=== PATIENT | female | born 1980 | race Two or more races ===

== ENCOUNTER 2023-03-24 12:33 | Emergency (ER) | payer MEDICAID ==
[~2023-03-24] VITALS: Ht 152.4 cm; Wt 69.7 kg
[2023-03-24 14:29] VITALS: BP 138/74; PULSE 71; RESP 16; TEMP 97.8; O2SAT 98
[2023-03-24] MEDS ORDERED: IBUP-1454 PO (15:00)
== END 2023-03-24 15:06 | disposition home or self-care (01) ==
LOC: ER 12:33
DX: M77.8 Other enthesopathies, not elsewhere classified (principal)
CPT/HCPCS: 73030

== ENCOUNTER 2024-04-05 17:30 | Emergency (ER) | payer MEDICAID ==
[~2024-04-05] VITALS: Ht 154.9 cm; Wt 79.0 kg
[~2024-04-05 17:30] MED LIST: IBUP-1454 PO
[2024-04-05 18:49] LABS: Urine Bacteria None Seen /hpf (None Seen)
[2024-04-05 18:55] LABS: Basophils # (auto) 0.1 10 ^3/uL (0-0.2); Basophils % (auto) 0.8 % (0.0-2.0); Eosinophils # (auto) 0.1 10 ^3/uL (0-0.8); Eosinophils % (auto) 1.3 % (0.0-7.0); Hematocrit 37.4 % (36.0-46.0); Hemoglobin 12.6 g/dL (12.2-16.2); Lymphocytes # (auto) 1.8 10 ^3/uL (0.4-5.4); Mean Corpuscular Hemoglobin 28.7 pg (28.0-32.0); Mean Corpuscular Hgb Conc. 33.6 g/dL (32.0-36.0); Mean Corpuscular Volume 85.4 fL (80.0-100.0); Monocytes # (auto) 0.6 10 ^3/uL (0-1.3); Monocytes % (auto) 9.5 % (0.0-12.0); Neutrophils # (auto) 4.2 10 ^3/uL (1.6-8.6); Neutrophils % (auto) 61.4 % (37.0-80.0); Platelet Count (auto) 307 10^3/uL (140-450); Red Blood Cells 4.38 10^6/uL (4.0-5.20); Red Cell Distribution Width 14.3 % (11.8-14.3); White Blood Cell 6.8 10^3/uL (4.4-10.8)
[2024-04-05 18:59] LABS: Urine Blood 3+ /uL (Negative); Urine Clarity Turbid (Clear); Urine Color Yellow (Yellow); Urine Mucus FEW (None Seen); Urine Protein, UAD 1+ (Negative); Urine Specific Gravity 1.031 (1.001-1.035); Urine Squamous Epithelial Cell MOD /hpf (<5); Urine Urobilinogen Normal (Negative); Urine WBC 3 /hpf (0 - 5); Urine pH 7.5 (5.0-9.0)
[2024-04-05 19:04] LABS: Chloride 106 mmol/L (98-107); Sodium 140 mmol/L (136-145)
[2024-04-05 19:05] LABS: Anion Gap 6 (5-15); Calcium 9.3 mg/dL (8.7-10.4); Carbon Dioxide 28 mmol/L (20-31)
[2024-04-05 19:10] LABS: BUN/Creatinine Ratio 19.6 (10.0-20.0); Blood Urea Nitrogen 11 mg/dL (9-23); Glucose 94 mg/dL (74-106)
--- NOTE | 2024-04-05 20:27 | ED.PDOC ---
VISUAL EDUCATOR HPI Comments This patient is a pleasant 43-year-old Italian-speaking only female who arrives the ED today for evaluation of excessive menses. Patient states she has had a heavy menses for the past 10 days. Patient has had heavy menses concerns for several months now. Patient has been seen by melt superintendant and has been placed on oral contraceptives medication to aid in this process. Patient's history is significant for uterine fibroids. Vital signs were stable on arrival. Chief Complaint: Vaginal Bleed Time Seen by MD: 17:46 Reviewed Notes: Nurses Notes Allergies: Coded Allergies: NO KNOWN ALLERGIES (Unverified , 03/24/23) Home Meds Active Scripts Ibuprofen (Ibuprofen) 600 Mg Tab, 1 TAB PO TID, #30 TAB Prov:MAUREEN GARCÍA 03/24/23 Information Source: Patient Mode of Arrival: Ambulatory Timing: Days Prehospital treatment: None Severity: Moderate Bleeding Quality: Bright Red Onset Of Mass/Bleeding: Menstrual Past Medical History PAST MEDICAL HISTORY: Denies Past Medical History (Other): Recent menses concerns Surgical History: Denies all surgeries SAP BW BI DEVELOPER History: No Pertinent SAP BW BI DEVELOPER History Family History Family History: Reviewed,noncontributory to illness Social History Smoker: Non-Smoker Alcohol: Denies ETOH Use Drugs: Denies Drug Use Lives In: Home Constitutional: denies: chills, diaphoresis, fatigue, fever, malaise, sweats, weakness, others EENTM: denies: blurred vision, double vision, ear bleeding, ear discharge, ear drainage, ear pain, ear ringing, eye pain, eye redness, hearing loss, mouth pain, mouth swelling, nasal discharge, nose bleeding, nose congestion, nose pain, photophobia, tearing, throat pain, throat swelling, voice changes, others Respiratory: denies: cough, hemoptysis, orthopnea, SOB at rest, shortness of breath, SOB with excertion, stridor, wheezing, others Cardiovascular: denies: chest pain, dizzy spells, diaphoresis, Dyspnea on exertion, edema, irregular heart beat, left arm pain, lightheadedness, palpitations, PND, syncope, others Gastrointestinal: denies: abdomen distended, abdominal pain, blood streaked bowels, constipated, diarrhea, dysphagia, difficulty swallowing, hematemesis, melena, nausea, poor appetite, poor fluid intake, rectal bleeding, rectal pain, vomiting, others Genitourinary: reports: abnormal vagina bleeding; denies: burning, dyspareunia, dysuria, flank pain, frequency, hematuria, incontinence, pain, , vagina discharge, urgency, others Neurological: denies: dizziness, fainting, headache, left sided numbness, left sided weakness, numbness, paresthesia, pre-existing deficit, right sided numbness, right sided weakness, seizure, speech problems, tingling, tremors, weakness, others Musculoskeletal: denies: back pain, gout, joint pain, joint swelling, muscle pain, muscle stiffness, neck pain, others Integumetry: denies: bruises, change in color, change in hair/nails, dryness, laceration, lesions, lumps, rash, wounds, others Allergic/Immunocompromised: denies: Difficulty Healing, Frequent Infections, Hives, Itching, others Hematologic/Lymphatic: denies: anemia, blood clots, easy bleeding, easy bruising, swollen glands, others Endocrine: denies: excessive hunger, excessive sweating, excessive thirst, excessive urination, flushing, intolerance to cold, intolerance to heat, unexplained weight gain, unexplained weight loss, others Psychiatric: denies: anxiety, bipolar disorder, depression, hopeless, panic disorder, schizophrenia, sleepless, suicidal, others Physical Exam General Appearance: Mild Distress (Moderate distress due to anxiety more than pain concerns.), Normal HEENT: Normal ENT Inspection, Pharynx Normal, TMs Normal Neck: Full Range of Motion, Non-Tender, Normal, Normal Inspection Respiratory: Chest Non-Tender, Lungs Clear, No Accessory Muscle Use, No Respiratory Distress, Normal Breath Sounds Cardiovascular: No Edema, No JVD, No Murmur, No Gallop, Normal Peripheral Pulses, Regular Rate/Rhythm Breast Exam: Deferred Gastrointestinal: No Organomegaly, Non Tender, No Pulsatile Mass, Normal Bowel Sounds, Soft Genitalia: Deferred Pelvic: Deferred Rectal: Deferred Extremities: No calf tenderness, Normal capillary refill, Normal inspection, Normal range of motion, Non-tender, No pedal edema Neurologic: Alert, gluer and slicer hand II-XII nml as Tested, No Motor Deficits, Normal Affect, Normal Mood, No Sensory Deficits Cerebellar Function: Normal Reflexes: Normal Skin: Dry, Normal Color, Warm Lymphatic: No Adenopathy Was a procedure done? Was a procedure done?: No Differential Diagnosis (SAP BW BI DEVELOPER) Vaginal Bleeding: Other (Anemia, dysfunctional uterine bleed, UTI) X-Ray, Labs, Meds, VS Vital Signs Date Time Temp Pulse Resp B/P (MAP) Pulse Ox O2 Delivery O2 Flow Rate FiO2 04/05/24 18:26 97.8 89 18 140/92 (108) 98 Lab Test 04/05/24 18:30 04/05/24 00:00 Range/Units White Blood Count 6.8 4.4-10.8 10^3/uL Red Blood Count 4.38 4.0-5.20 10^6/uL Hemoglobin 12.6 12.2-16.2 g/dL Hematocrit 37.4 36.0-46.0 % Mean Corpuscular Volume 85.4 80.0-100.0 fL Mean Corpuscular Hemoglobin 28.7 28.0-32.0 pg Mean Corpuscular Hemoglobin Concent 33.6 32.0-36.0 g/dL Red Cell Distribution Width 14.3 11.8-14.3 % Platelet Count 307 140-450 10^3/uL Mean Platelet Volume 8.2 6.9-10.8 fL Neutrophils (%) (Auto) 61.4 37.0-80.0 % Lymphocytes (%) (Auto) 27.0 10.0-50.0 % Monocytes (%) (Auto) 9.5 0.0-12.0 % Eosinophils (%) (Auto) 1.3 0.0-7.0 % Basophils (%) (Auto) 0.8 0.0-2.0 % Neutrophils # (Auto) 4.2 1.6-8.6 10 ^3/uL Lymphocytes # (Auto) 1.8 0.4-5.4 10 ^3/uL Monocytes # (Auto) 0.6 0-1.3 10 ^3/uL Eosinophils # (Auto) 0.1 0-0.8 10 ^3/uL Basophils # (Auto) 0.1 0-0.2 10 ^3/uL Nucleated Red Blood Cells 0.0 % Sodium Level 140 136-145 mmol/L Potassium Level 4.0 3.5-5.1 mmol/L Chloride Level 106 98-107 mmol/L Carbon Dioxide Level 28 20-31 mmol/L Anion Gap 6 5-15 Blood Urea Nitrogen 11 9-23 mg/dL Creatinine 0.56 0.550-1.02 mg/dL Glomerular Filtration Rate Calc 118 >90 mL/min BUN/Creatinine Ratio 19.6 10.0-20.0 Serum Glucose 94 74-106 mg/dL Calcium Level 9.3 8.7-10.4 mg/dL Urine Color Yellow Yellow Urine Clarity Turbid H Clear Urine pH 7.5 5.0-9.0 Urine Specific Holcomb 1.031 1.001-1.035 Urine Protein 1+ H Negative Urine Ketones Negative Negative Urine Blood 3+ H Negative /uL Urine Nitrite Negative Negative Urine Bilirubin Negative Negative Urine Urobilinogen Normal Negative mg/dL Urine Leukocyte Esterase 1+ Negative /uL Urine RBC 1 0 - 4 /hpf Urine WBC 3 0 - 5 /hpf Urine Squamous Epithelial Cells Mod <5 /hpf Urine Bacteria None seen None Seen /hpf Urine Mucus Few None Seen Urine Glucose 1+ H Normal mg/dL X-Ray, Labs, Meds, VS Comment All studies performed the ED were evaluated by me personally. Laboratories were unremarkable for any systemic process as it was urine. Advised patient that she needs to continue follow up with her melt superintendant for management of her heavy menses concerns. Time of 1ST Reevaluation: 20:25 Reevaluation 1ST: Unchanged Consultation: PCP, airplane gas tank liner assembler Patient Education/Counseling: Diagnosis, Treatment Family Education/Counseling: Diagnosis, Treatment Departure 1 Departure Time of Disposition: 20:26 Impression: Primary Impression: Heavy menses Disposition: 01 HOME / SELF CARE / HOMELESS Condition: Stable Additional Instructions: Follow up with melt superintendant for continued evaluation and management of her heavy menses concerns. Discharged With: Self, Friend Critical Care Note Critical Care Time?: No Stability Stability form required: No Heart Score Heart Score: Heart Score Response (Comments) Value History N/A 0 EKG N/A 0 Age N/A 0 Risk Factors N/A 0 Troponin N/A 0 Total 0 KEMI WOOD PAC Apr 05, 2024 20:26
[2024-04-05 20:39] VITALS: BP 124/86; PULSE 69; RESP 16; TEMP 97.8; O2SAT 98
== END 2024-04-05 20:55 | disposition home or self-care (01) ==
LOC: ER 17:30
DX: N92.0 Excessive and frequent menstruation with regular cycle (principal); Z79.1 Long term (current) use of non-steroidal anti-inflammatories (NSAID); Z86.018 Personal history of other benign neoplasm
CPT/HCPCS: 36415; 80048; 81001; 85025

== ENCOUNTER 2024-04-12 20:29 | Emergency (ER) | payer MEDICAID ==
[~2024-04-12] VITALS: Ht 154.9 cm; Wt 74.2 kg
[2024-04-12 20:56] VITALS: BP 127/79; PULSE 95; RESP 16; O2SAT 100
--- NOTE | 2024-04-12 21:23 | ED.PDOC ---
NURSING PROGRAM DIRECTOR HPI Comments 43-year-old female who came to ER for vaginal bleeding. Patient is a , LMP of Mar 15 which lasted a few days. Last Mar 27, she started having vaginal bleeding again, which progressively worsened the past few days, consuming 7 pads/ day. Currently complaining of weakness and bilateral leg cramps. She denies being . Patient has yet to see a Twisthand regarding this issue. Chief Complaint: Vaginal bleeding Time Seen by MD: 21:22 Reviewed Notes: Nurses Notes Allergies: Coded Allergies: NO KNOWN ALLERGIES (Unverified , 03/24/23) Home Meds Active Scripts Ibuprofen (Ibuprofen) 600 Mg Tab, 1 TAB PO TID, #30 TAB Prov:MAUREEN GARCÍA 03/24/23 Information Source: Patient Mode of Arrival: Ambulatory Timing: Days Severity: Moderate Bleeding Quality: Bright Red, Dark Onset Of Mass/Bleeding: Spontaneous Associated Signs and Symptoms: Vaginal Bleeding, Abdominal Pain Review of Systems REVIEW OF SYSTEMS: No fever, no chills, or fatigue HEENT: No sore throat, no earache, no congestion, no neck pain. Cardiac: No chest pain. No palpitations. Lungs: No shortness of breath, no cough. GI: No nausea, no vomiting, no diarrhea, no constipation, positive pelvic pain : No dysuria, frequency, or urgency. No hematuria. (+) vaginal bleeding Musculoskeletal: No joint pain , no joint swelling, no extremity edema. Skin: No rash, no itching. Neuro: No headache, no dizziness, (+)weakness Vital Signs Vital Signs Date Time Temp Pulse Resp B/P (MAP) Pulse Ox O2 Delivery O2 Flow Rate FiO2 04/12/24 20:56 98.7 95 16 127/79 (95) 100 Physical Exam General: Awake, alert and oriented. No acute distress. Skin: Skin in warm, dry and intact without rashes or lesions. HEENT: The head is normocephalic and atraumatic. Conjunctivae are clear without exudates or hemorrhage. Sclera is non-icteric. Neck: Normal range of motion. No JVD. Cardiac: Regular rate Respiratory: No signs of respiratory distress. No Stridor. Extremities: Upper and lower extremities are atraumatic in appearance without tenderness or deformity. Neurological: The patient is awake, alert and oriented to person, place, and time with normal speech. Speech is clear. There is no facial asymmetry. Psychiatric: Appropriate mood and affect. Good judgement and insight. No visual or auditory hallucinations. No suicidal or homicidal ideation. Past Medical History PAST MEDICAL HISTORY: Denies Surgical History: Denies all surgeries RAILROAD SWITCHMAN History: No Pertinent RAILROAD SWITCHMAN History 2 Para 2 LMP Mar 15, 2024 Family History Family History: Reviewed,noncontributory to illness Social History Smoker: Non-Smoker Alcohol: Denies ETOH Use Drugs: Denies Drug Use Lives In: Home Was a procedure done? Was a procedure done?: No Differential Diagnosis (RAILROAD SWITCHMAN) Vaginal Bleeding: Blood Loss Anemia, Menorrhagia, Menometrorrhagia, Menstrual Bleeding, UTI X-Ray, Labs, Meds, VS Vital Signs Date Time Temp Pulse Resp B/P (MAP) Pulse Ox O2 Delivery O2 Flow Rate FiO2 04/12/24 20:56 98.7 95 16 127/79 (95) 100 Lab Test 04/12/24 21:36 04/12/24 21:27 Range/Units White Blood Count 8.5 4.4-10.8 10^3/uL Red Blood Count 3.70 L 4.0-5.20 10^6/uL Hemoglobin 10.6 L 12.2-16.2 g/dL Hematocrit 31.7 L 36.0-46.0 % Mean Corpuscular Volume 85.8 80.0-100.0 fL Mean Corpuscular Hemoglobin 28.6 28.0-32.0 pg Mean Corpuscular Hemoglobin Concent 33.3 32.0-36.0 g/dL Red Cell Distribution Width 13.8 11.8-14.3 % Platelet Count 278 140-450 10^3/uL Mean Platelet Volume 8.9 6.9-10.8 fL Neutrophils (%) (Auto) 68.8 37.0-80.0 % Lymphocytes (%) (Auto) 22.8 10.0-50.0 % Monocytes (%) (Auto) 6.8 0.0-12.0 % Eosinophils (%) (Auto) 1.2 0.0-7.0 % Basophils (%) (Auto) 0.4 0.0-2.0 % Neutrophils # (Auto) 5.8 1.6-8.6 10 ^3/uL Lymphocytes # (Auto) 1.9 0.4-5.4 10 ^3/uL Monocytes # (Auto) 0.6 0-1.3 10 ^3/uL Eosinophils # (Auto) 0.1 0-0.8 10 ^3/uL Basophils # (Auto) 0 0-0.2 10 ^3/uL Nucleated Red Blood Cells 0.0 % Sodium Level 143 136-145 mmol/L Potassium Level 3.2 L 3.5-5.1 mmol/L Chloride Level 110 H 98-107 mmol/L Carbon Dioxide Level 25 20-31 mmol/L Anion Gap 8 5-15 Blood Urea Nitrogen 10 9-23 mg/dL Creatinine 0.62 0.550-1.02 mg/dL Glomerular Filtration Rate Calc 115 >90 mL/min BUN/Creatinine Ratio 16.1 10.0-20.0 Serum Glucose 132 H 74-106 mg/dL Calcium Level 9.1 8.7-10.4 mg/dL Total Bilirubin < 0.2 L 0.2-1.0 mg/dL Aspartate Amino Transferase (AST) 20 13-40 U/L Alanine Aminotransferase (ALT) 15 7-40 U/L Alkaline Phosphatase 77 46-116 U/L Total Protein 6.7 5.7-8.2 g/dL Albumin 4.1 3.2-4.8 g/dL Urine Test Negative Negative Time of 1ST Reevaluation: 21:14 Reevaluation 1ST: Unchanged Patient Education/Counseling: Diagnosis, Treatment Family Education/Counseling: No Family Present Departure 1 Departure Time of Disposition: 00:08 Impression: Primary Impression: Heavy menses Disposition: 01 HOME / SELF CARE / HOMELESS Condition: Stable Additional Instructions: INSTRUCCIONES DE WILDA DE Urgencias Instrucciones: Enedina atentamente todas las instrucciones proporcionadas en maxim paquete. Aunque le hayan dado el wilda del Departamento de Emergencias, esto no significa que tenga un "certificado de buena batool". Hoy no se maehr realizado ningn diagnstico definitivo para nabeel sntomas. Es posible que ests en proceso de desarrollar madelaine enfermedad grave. Es por eso que debe regresar al servicio de urgencias sin falta si presenta algn sntoma nuevo o que empeora (especialmente si nabeel sntomas incluyen dolor en el pecho, dificultad para respirar, dolor abdominal, fiebre, dolor de chester, confusin, dificultad para monik o caminar). [place] es muy importante que consulte a un mdico de atencin primaria dentro de los prximos 3 wilson para realizar un seguimiento. Necesitar repetir los anlisis de jesenia para asegurarse de que hernandez anemia no empeore. Es posible que n ecesite madelaine transfusin de jesenia. Si no puede conseguir madelaine sharon, regrese al servicio de urgencias para madelaine nueva evaluacin. Sangrado uterino anormal: instrucciones de cuidado El sangrado uterino anormal es un sangrado irregular del tero. Puede ser un sangrado ms abundante, ms ligero o ms prolongado que el perodo habitual. O puede ser un sangrado que no se produce en el momento habitual. A veces, se debe a cambios en los niveles hormonales. Tambin puede deberse a crecimientos en el tero, vini fibromas o plipos. A veces, no se puede encontrar madelaine causa. Es posible que tengas sangrado cuando no ests esperando tu perodo. Tu mdico puede sugerirte madelaine prueba de embarazo. El seguimiento mdico es madelaine parte fundamental de hernandez tratamiento y hernandez seguridad. Asegrese de programar y acudir a todas las citas, y llame a hernandez mdico si tiene problemas. Tambin es madelaine buena idea saber los resultados de nabeel pruebas y llevar madelaine lista de los medicamentos que pacheco. Quality Rn puedes cuidarte en casa? [place] los medicamentos con precaucin. Tmelos exactamente vini le indiquen. Si el mdico le recet un medicamento para el dolor, tmelo segn lo prescrito. Si no est tomando un analgsico recetado, pregntele a hernandez mdico si puede andria un medicamento de venta aleksander. Es posible que tenga niveles bajos de verito debido a la prdida de jesenia. Siga madelaine dieta equilibrada ermelinda en verito y vitamina C. Los alimentos ricos en verito incluyen teddy ferrara, mariscos, huevos, frijoles y vegetales de hojas verdes. Hable con hernandez mdico sobre si necesita andria pastillas de verito o un multivitamnico. Cundo debes pedir ayuda? Llame al 911 en cualquier momento en que crea que puede necesitar atencin de emergencia. Por ejemplo, llame si: Te desmayaste (perdiste el conocimiento). Llame a hernandez mdico ahora o busque atencin mdica inmediata si: Tiene dolor abdominal o plvico nuevo o que empeora. Tiene sangrado vaginal teodoro. Se siente mareado o aturdido, o siente que se puede desmayar. Preste atencin a los cambios en hernandez batool y asegrese de comunicarse con hernandez mdico si: Crees que puedes estar embarazada. Hernandez sangrado empeora. No mejoras vini esperabas Crditos por sangrado uterino anormal: instrucciones de cuidado Actualizado al 2023 Autor: Personal de [facility], [facility] Junta de revisin clnica Toda la educacin de [facility] es revisada por un equipo que incluye mdicos, enfermeras, profesionales avanzados, dietistas registrados y otros profesionales de la batool. Nota: El documento "en versin para imprimir" no contendr toda la informacin disponible en el documento en lnea. Alguna informacin (por ejemplo, referencias cruzadas a otros temas, definiciones o ilustraciones mdicas) solo est disponible en la versin en lnea. Comments 43-year-old female with vaginal bleeding ongoing for 1 week. Patient's vital signs are stable. She is noted to be mildly anemic. Pelvic Ultrasound is unremarkable. She is advised to follow up with the primary care provider, keep upcoming appointment with her cap jewel plate assembler. Advised to return to the emergency department for re-evaluation if she is unable to get an appointment within the next 3 days. - I reviewed the following notes from the pt's past medical encounters: Previous ER visit on 04/05/2024 The following tests were ordered, and results were reviewed by me: (See diagnostic results section) The following test were independently interpreted by me: N/A Additional information was gathered from interviewing the following independent historians: (N/A) I reviewed and agreed with the following test results read by other providers: N/A I discussed treatments and results with medical personnel and: Patient Decision regarding hospitalization or escalation of hospital level of care: Risks and benefits of admission for further treatment of patient's condition was considered however due to patient's stable condition patient will be discharged to follow up closely or return to care for worsening of condition or inability to follow up. Critical Care Note Critical Care Time?: No Stability Stability form required: No Heart Score Heart Score: Heart Score Response (Comments) Value History N/A 0 EKG N/A 0 Age N/A 0 Risk Factors N/A 0 Troponin N/A 0 Total 0 I personally scribed for CHARU DUARTE MD ([email or web address]) on 04/12/24 at 21:23. Electronically submitted by Jin Martin ([email or web address]). CHARU DUARTE MD Apr 12, 2024 21:23
--- NOTE | 2024-04-12 22:26 | DVH ---
INDICATION: Heavy Vaginal Bleeding, Pelvic Pain TECHNIQUE: Multiple real-time grayscale transabdominal and transvaginal sonographic images along with color and duplex Doppler of the uterus and ovaries were obtained. COMPARISON: None FINDINGS: The uterus measures 10.4 x 5.8 by 6.98 cm. Uterine volume is 220.51 mL cm. The endometrial stripe measures 2.72 cm. The right ovary measures 4.33 x 2.59 x 2.76 cm. Right ovarian volume is 16.22 mL. cm. The left ovary measures 2.74 x 1.65 x 2.07 cm. Left ovarian volume is 4.93 mL. cm. Subsequent color and duplex Doppler interrogation of the ovaries demonstrated symmetric vascular flow to both ovaries, though this does not exclude the possibility of torsion due to the dual blood suppl y. IMPRESSION: 1. Grossly unremarkable pelvic ultrasound.
[2024-04-12 22:38] LABS: Basophils # (auto) 0 10 ^3/uL (0-0.2); Basophils % (auto) 0.4 % (0.0-2.0); Eosinophils # (auto) 0.1 10 ^3/uL (0-0.8); Eosinophils % (auto) 1.2 % (0.0-7.0); Hematocrit 31.7 % (36.0-46.0); Hemoglobin 10.6 g/dL (12.2-16.2); Lymphocytes # (auto) 1.9 10 ^3/uL (0.4-5.4); Lymphocytes % (auto) 22.8 % (10.0-50.0); Mean Corpuscular Hemoglobin 28.6 pg (28.0-32.0); Mean Corpuscular Hgb Conc. 33.3 g/dL (32.0-36.0); Mean Corpuscular Volume 85.8 fL (80.0-100.0); Monocytes # (auto) 0.6 10 ^3/uL (0-1.3); Monocytes % (auto) 6.8 % (0.0-12.0); Neutrophils # (auto) 5.8 10 ^3/uL (1.6-8.6); Neutrophils % (auto) 68.8 % (37.0-80.0); Platelet Count (auto) 278 10^3/uL (140-450); Red Cell Distribution Width 13.8 % (11.8-14.3); White Blood Cell 8.5 10^3/uL (4.4-10.8)
[2024-04-12 22:46] LABS: Alanine Aminotransferase 15 U/L (7-40); Albumin 4.1 g/dL (3.2-4.8); Alkaline Phosphatase 77 U/L (46-116); Anion Gap 8 (5-15); Aspartate Aminotransferase 20 U/L (13-40); BUN/Creatinine Ratio 16.1 (10.0-20.0); Blood Urea Nitrogen 10 mg/dL (9-23); Calcium 9.1 mg/dL (8.7-10.4); Carbon Dioxide 25 mmol/L (20-31); Sodium 143 mmol/L (136-145); Total Protein 6.7 g/dL (5.7-8.2)
[2024-04-12 22:47] LABS: Bilirubin, Total < 0.2 mg/dL (0.2-1.0); Chloride 110 mmol/L (98-107); Glucose 132 mg/dL (74-106); Potassium 3.2 mmol/L (3.5-5.1)
== END 2024-04-13 01:21 | disposition home or self-care (01) ==
LOC: ER 20:29
DX: N92.1 Excessive and frequent menstruation with irregular cycle (principal)
CPT/HCPCS: 36415; 76830; 76856; 80053; 81025; 85025